=== PATIENT | male | born 1975 | race Caucasian/White ===

== ENCOUNTER 2022-03-29 22:17 | Emergency (ER) | payer BC ==
[~2022-03-29] VITALS: Ht 175.3 cm; Wt 83.9 kg
--- NOTE | 2022-03-29 23:00 | NUR ---
Dr. Garcia at bedside. MSE in progress.
[2022-03-29] MEDS ORDERED: FLUORESCEIN SODIUM 1 MG STRIP ONE (23:06)
[2022-03-29] MEDS ORDERED: FLUORESCEIN SODIUM 1 MG STRIP OP ONE (23:15)
--- NOTE | 2022-03-29 23:45 | NUR ---
Patient discharged to home in stable condition. A/O x4. NAD noted. All belongings with patient. Ambulatory with steady gait. Written and verbal after care instructions given. Patient verbalizes understanding of instructions. Stressed follow up or return to ER for worsening s/s.
[2022-03-29 23:58] VITALS: BP 145/94
== END 2022-03-29 23:45 | disposition home or self-care (01) ==
LOC: ER 22:17
DX: H10.9 Unspecified conjunctivitis (principal); I10 Essential (primary) hypertension
CPT/HCPCS: A4663